=== PATIENT | female | born 1945 | race Caucasian/White ===

== ENCOUNTER 2018-07-19 13:20 | Emergency (ER) | payer MEDICARE, OTHER ==
[~2018-07-19] VITALS: Ht 170.2 cm; Wt 60.0 kg
[~2018-07-19 13:20] MED LIST: AMOX250C; CALC-600 PO; GLUC1CAP40 PO; MTF1000T PO; SIMV20TA2 PO; VALS40TA2 PO
[2018-07-19] MEDS ORDERED: morphine 4 MG/ML VIAL IV STA (13:21)
[2018-07-19] MEDS ORDERED: SOD CHLORIDE 0.9% 1,000 ML IV STA (13:21)
[2018-07-19] MEDS ORDERED: ONDANSETRON 4 MG INJ IV STA (13:21)
[2018-07-19 13:28] VITALS: Ht 170.2 cm; Wt 60.0 kg
--- NOTE | 2018-07-19 13:42 | ERD ---
ER Documentation Chief Complaint Chief Complaint DIARRHEA NAUSEA + ORTHO STATICS HPI 73-year-old female presents with 1-2 hours of symptoms that include lower abdominal cramping, multiple episodes of loose watery stool. Mild nausea no vomiting. She denies any chest pain or shortness of breath. She had positive orthostatic vital signs via EMS. No recent travel sick contacts or antibiotics. The pain to the abdomen is cramping, moderate and alleviated at this time. ROS All systems reviewed and are negative except as per history of present illness. Medications Home Meds Reported Medications Simvastatin* (Zocor*) 20 Mg Tablet, 20 MG PO QHS, #30 TAB 07/19/18 Valsartan* (Diovan*) 40 Mg Tablet, 20 MG PO DAILY PRN for ELEVATED BLOOD PRESSURE, TAB 07/19/18 Metformin* (Glucophage*) 1,000 Mg Tablet, 1000 MG PO BID, #60 TAB 07/19/18 Discontinued Reported Medications Simvastatin (Simvastatin) 20 Mg Tablet, 20 MG PO HS, TAB 03/03/15 Calcium (Calcium) 500 Mg Tablet, 500 MG PO 10/16/12 Glucosa Rivera 2KCL/Chondroitin Rivera (Glucosamine & Chondroitin Cap) 1 Cap Capsule, 1 CAP PO 10/16/12 Amoxicillin* (Amoxil*) 250 Mg Cap PT UNSURE OF DOSAGE 10/16/12 Valsartan* (Diovan*) 40 Mg Tablet, 80 MG PO ONCE/WEEK 10/16/12 Metformin* (Glucophage*) 1,000 Mg Tablet, 1000 MG PO BID 10/16/12 Allergies Allergies: Coded Allergies: Procaine HCl (Verified Allergy, Unknown, FLUSH/REDNESS, 03/03/15) PMhx/Soc History of Surgery: Yes (GALL BLADDER) Anesthesia Reaction: No Hx Neurological Disorder: No Hx Respiratory Disorders: No Hx Cardiac Disorders: Yes (HIGH CHOLESTEROL,HTN) Hx Psychiatric Problems: No Hx Miscellaneous Medical Probl: No Hx Alcohol Use: No Hx Substance Use: No Hx Tobacco Use: No FmHx Family History: No diabetes Physical Exam Vitals Vital Signs Date Temp Pulse Resp B/P (MAP) Pulse Ox O2 O2 Flow FiO2 Time Delivery Rate 07/19/18 59 20 131/65 100 Room Air 14:19 (87) 07/19/18 98.7 64 18 143/74 96 13:28 (97) Physical Exam General: Well developed, well nourished, no acute distress Head: Normocephalic, atraumatic. Eyes: Pupils equally reactive, EOM intact ENT: Moist mucous membranes Neck: Supple, no lymphadenopathy Respiratory: Lungs clear bilaterally, no distress Cardiovascular: RRR, no murmurs, rubs, or gallops Abdominal: Soft, mild lower right and left sided abdominal tenderness to palpation without rebound or guarding : Deferred MSK: No edema, no unilateral swelling, 5/5 strength Neurologic: Alert and oriented, moving all extremities, normal speech, no focal weakness, no cerebellar signs Skin: No rash Psych: Normal mood Result Diagram: 07/19/18 1346 07/19/18 1346 Results 24 hrs Laboratory Tests Test 07/19/18 13:46 White Blood Count 9.3 10^3/ul Red Blood Count 4.08 10^6/ul Hemoglobin 12.5 g/dl Hematocrit 39.0 % Mean Corpuscular Volume 95.6 fl Mean Corpuscular Hemoglobin 30.6 pg Mean Corpuscular Hemoglobin Concent 32.1 g/dl Red Cell Distribution Width 12.0 % Platelet Count 224 10^3/UL Mean Platelet Volume 12.3 fl Immature Granulocytes % 0.200 % Neutrophils % 54.3 % Lymphocytes % 35.6 % Monocytes % 7.8 % Eosinophils % 1.2 % Basophils % 0.9 % Nucleated Red Blood Cells % 0.0 /100WBC Immature Granulocytes # 0.020 10^3/ul Neutrophils # 5.1 10^3/ul Lymphocytes # 3.3 10^3/ul Monocytes # 0.7 10^3/ul Eosinophils # 0.1 10^3/ul Basophils # 0.1 10^3/ul Nucleated Red Blood Cells # 0.0 10^3/ul Sodium Level 138 mmol/L Potassium Level 5.2 mmol/L Chloride Level 102 mmol/L Carbon Dioxide Level 22 mmol/L Anion Gap 14 Blood Urea Nitrogen 25 mg/dl Creatinine 0.89 mg/dl Est Glomerular Filtrat Rate mL/min mL/min Glucose Level 235 mg/dl Calcium Level 10.6 mg/dl Total Bilirubin 0.2 mg/dl Direct Bilirubin 0.00 mg/dl Indirect Bilirubin 0.2 mg/dl Aspartate Amino Transf (AST/SGOT) 27 IU/L Alanine Aminotransferase (ALT/SGPT) 10 IU/L Alkaline Phosphatase 71 IU/L Total Protein 7.3 g/dl Albumin 4.0 g/dl Globulin 3.30 g/dl Albumin/Globulin Ratio 1.21 Lipase 111 U/L Current Medications Medications Dose Sig/Erin Start Time Status Last (Trade) Ordered Route PRN Stop Time Admin Dose Reason Admin Sodium 1,000 ml @ Q1H STAT 07/19/18 DC 07/19/18 Chloride 1,000 mls/hr IV 13:21 14:17 07/19/18 14:20 Morphine 4 mg ONCE STAT 07/19/18 DC Sulfate IV 13:21 (morphine) 07/19/18 13:23 Ondansetron 4 mg ONCE STAT 07/19/18 DC HCl (Zofran IV 13:21 Inj) 07/19/18 13:23 Procedures/MDM EKG, MONITORS, & DIAGNOSTIC IMAGING: CT abdomen and pelvis: IMPRESSION: 1. No evidence of focal acute inflammatory process. 2. Bilateral hyperdense renal lesions measuring up to 1.8 cm on the left. These may represent hemorrhagic cysts however solid lesions are not ruled out. Further evaluation with renal mass protocol CT or MRI may be obtained. 3. Pneumobilia. 4. Moderate aortoiliac atherosclerosis. LAB INTERPRETATION: * CBC with no significant leukocytosis or signs of infection * Chemistry profile shows borderline hyperkalemia of unclear significance 5.2. Hyperglycemia without diabetic ketoacidosis of 235 MEDICAL DECISION MAKING: The patient presents with abdominal pain and diarrhea, likely viral in etiology however given the patient's age she is at risk for acute intra-abdominal process such as bowel obstruction, appendicitis among others. CT imaging would be appropriate. ER COURSE: * Patient given IV fluids and pain control medication with dramatic improvement and complete resolution of her symptoms. Patient is now ambulatory and asymptomatic. * Family has arrived and states that the patient does have recurrent episodes of this from time to time. The patient has had a negative colonoscopy within the last 5 years. * There were notified of CT findings of the renal findings need for outpatient follow-up and ultrasound imaging * At this point the patient has stabilized, no evidence of acute emergent condition that warrants hospitalization. The patient can be safely discharged with primary care follow-up. CONSULTATION: [None] DISPOSITION PLAN: The patient does not have an identifiable emergent medical condition that warrants inpatient hospitalization at this time. The patient is deemed safe for discharge with outpatient follow-up. We discussed follow up with the patient's primary care doctor within 24 to 48 hours as needed. We also discussed return to the emergency room for worsening symptoms or worsening condition. Outpatient referral: [None required] Discharge Medications: Probiotics recommended Departure Diagnosis: Primary Impression: Abdominal pain Abdominal location: generalized Qualified Codes: R10.84 - Generalized abdominal pain Additional Impression: Diarrhea Diarrhea type: unspecified type Qualified Codes: R19.7 - Diarrhea, unsp ecified Condition: Stable ABIGAIL FLORES MD Jul 19, 2018 13:42
[2018-07-19] MEDS ORDERED: MTF1000T PO (15:39)
[2018-07-19] MEDS ORDERED: VALS40TA2 PO (15:40)
[2018-07-19] MEDS ORDERED: SIMV20TA PO (15:40)
[2018-07-19 16:28] VITALS: BP 155/64; PULSE 60; RESP 18
== END 2018-07-19 16:28 | disposition home or self-care (01) ==
LOC: E/R 13:20
DX: R10.84 Generalized abdominal pain (principal); I10 Essential (primary) hypertension; Z79.84 Long term (current) use of oral hypoglycemic drugs
CPT/HCPCS: 36415; 74176; 80053; 81003; 83690; 85025; 99285; J7030; J2270; J2405